=== PATIENT | female | born 1990 | race Caucasian/White ===

== ENCOUNTER 2016-06-05 18:05 | Emergency (ER) | payer OTHER ==
[~2016-06-05] VITALS: Ht 160 cm; Wt 61.5 kg
[~2016-06-05 18:05] MED LIST: PREN1TAB49
[2016-06-05 18:37] VITALS: Ht 160 cm; Wt 61.5 kg
[2016-06-05] MEDS ORDERED: KETOROLAC 30 MG INJ IM STA (20:38)
--- NOTE | 2016-06-05 21:33 | RADRPT ---
PROCEDURE: CR Left Knee CLINICAL INDICATION: Pain TECHNIQUE: An AP, lateral, and an oblique radiographs were submitted. COMPARISON: None FINDINGS: Osseous Structures: The osseous elements appear well mineralized and intact. Joint Spaces: The joint spaces are well maintained. No joint effusion is identified. Soft Tissues: The soft tissues appear unremarkable. IMPRESSION: Unremarkable left knee. Physician Kirt Date Time Electronically viewed and signed by Cheli Manley Physician on 06/05/2016 21:32 /
--- NOTE | 2016-06-05 21:33 | RADRPT ---
PROCEDURE: XR Left Hip CLINICAL INDICATION: Pain TECHNIQUE: AP and frog-leg views were submitted. COMPARISON: None FINDINGS: Osseous structures: appear well mineralized and intact with no fracture or destructive process iden tified. Joint spaces: The hip joint is well maintained there is no distension of the joint capsule. Soft tissues: appear unremarkable. IMPRESSION: Unremarkable left hip. Physician Kirt Date Time Electronically viewed and signed by Cheli Manley Physician on 06/05/2016 21:33 /
--- NOTE | 2016-06-05 21:37 | ERD ---
ER Documentation Chief Complaint Date/Time DATE: 06/05/16 TIME: 21:37 Chief Complaint pain on left hip, left knee x 1 month. denies injury HPI 26-year-old otherwise healthy female presents to the emergency department for intermittent throbbing left hip and knee pain 2 months. Patient denies any history of trauma or injury. Patient was seen by her primary care physician 2 days ago and prescribed Motrin for pain. Patient also receives referral for physical therapy for her primary care physician. Patient presents to the emergency department for concerns of a fracture and would like x-rays performed today. Patient denies any history of autoimmune disorder or arthritis. ROS All systems reviewed and are negative except as per history of present illness. Medications Home Meds Reported Medications Vits W-Ca,Fe,Fa(<1MG) () 1 Tab Tablet 08/18/10 Allergies Allergies: Coded Allergies: No Known Allergies (Verified Allergy, Mild, 06/05/16) PMhx/Soc History of Surgery: No Anesthesia Reaction: No Hx Neurological Disorder: No Hx Respiratory Disorders: No Hx Cardiac Disorders: No Hx Psychiatric Problems: No Hx Miscellaneous Medical Probl: No Hx Alcohol Use: No Hx Substance Use: No Hx Tobacco Use: No Smoking Status: Never smoker Physical Exam Vitals Vital Signs Date Time Temp Pulse Resp B/P Pulse Ox O2 Delivery O2 Flow Rate FiO2 06/05/16 18:37 98.2 76 20 136/70 99 Physical Exam Const: Well-developed, well-nourished, in no acute Head: Atraumatic Eyes: Normal Conjunctiva ENT: Normal External Ears, Nose and Mouth. Neck: Full range of motion..~ No meningismus. Resp: Clear to auscultation bilaterally Cardio: Regular rate and rhythm, no murmurs Abd: Soft, non tender, non distended. Normal bowel sounds Skin: No petechiae or rashes Back: Mild left-sided flank tenderness. Ext: Tenderness to palpation along piriformis muscle distribution of left hip. Tenderness to palpation along the medial inferior aspect of left knee joint. Patient able to perform full active and passive range of motion at knee hip and ankle joints on the left extremity. Patient neurovascularly intact equally in bilateral to lower extremities. No evidence of overlying cellulitis. No cyanosis, or edema Neur: Awake and alert Psych: Normal Mood and Affect Results 24 hrs Current Medications Medications (Trade) Dose Ordered Sig/Yris Route PRN Reason Start Time Stop Time Status Last Admin Dose Admin Ketorolac Tromethamine (Toradol) 30 mg ONCE STAT IM 06/05/16 20:38 06/05/16 20:40 DC 06/05/16 21:12 Procedures/MDM X-ray Knee 3V Interpreted by me: Bones: No fracture Joints: No dislocation Foreign body: None X-ray Hip 2V Interpreted by me: Bones: No fracture Joints: No dislocation Foreign body: None PROCEDURE: XR Left Hip CLINICAL INDICATION: Pain TECHNIQUE: AP and frog-leg views were submitted. COMPARISON: None FINDINGS: Osseous structures: appear well mineralized and intact with no fracture or destructive process identified. Joint spaces: The hip joint is well maintained there is no distension of the joint capsule. Soft tissues: appear unremarkable. IMPRESSION: Unremarkable left hip. Physician Kirt Date Time Electronically viewed and signed by Physician Kirt on 06/05/2016 21:33 RH/ CC: PAMELA MCCABE PA-C PROCEDURE: CR Left Knee CLINICAL INDICATION: Pain TECHNIQUE: An AP, lateral, and an oblique radiographs were submitted. COMPARISON: None FINDINGS: Osseous Structures: The osseous elements appear well mineralized and intact. Joint Spaces: The joint spaces are well maintained. No joint effusion is identified. Soft Tissues: The soft tissues appear unremarkable. IMPRESSION: Unremarkable left knee. Physician Kirt Date Time Electronically viewed and signed by Physician Kirt on 06/05/2016 21:32 RH/ CC: PAMELA MCCABE PA-C, LINDSEY M. PA-C Jun 05, 2016 21:37
[2016-06-05] MEDS ORDERED: HYDR-902 PO (21:55)
[2016-06-05 22:09] LABS: URINE BLOOD (Dip) POC 2+ (NEGATIVE)
[2016-06-05] MEDS ORDERED: CEPH-443 PO (22:12)
== END 2016-06-05 22:23 | disposition home or self-care (01) ==
LOC: FTE 18:05
DX: M25.552 Pain in left hip (principal)
CPT/HCPCS: 73510; 73562; 81003; J1885; 96372